=== PATIENT | female | born 1980 | race African-American/Black ===

== ENCOUNTER 2024-05-30 15:54 | Emergency (ER) | payer MEDICAID, OTHER ==
[~2024-05-30] VITALS: Ht 167.6 cm; Wt 80.0 kg
[~2024-05-30 15:54] MED LIST: NO MEDICATIONS REPORTED
[2024-05-30 16:10] VITALS: BP 137/92; PULSE 75; RESP 16; TEMP 98.3; O2SAT 98
[2024-05-30 18:15] LABS: BASOPHILS % 0.7 % (0.0-2.0); EOSINOPHILS % 0.8 % (0.0-5.0); HEMATOCRIT. 40.1 % (36.0-48.0); HEMOGLOBIN. 13.4 g/dL (12.0-16.0); LYMPHOCYTES % 34.5 % (20.0-50.0); MEAN CORPUSCULAR HGB CONC 33.3 g/dL (31.0-37.0); MEAN CORPUSCULAR VOLUME 93.1 fL (81.0-99.0); MEAN PLATELET VOLUME 10.3 fl (7.4-10.4); MONOCYTES % 7.6 % (2.0-8.0); NEUTROPHILS % 56.4 % (40.0-76.0); PLATELET 211 x1000/uL (130-400); RED BLOOD CELL COUNT 4.31 mill/uL (4.2-5.4); RED CELL DISTRIBUTION WIDTH 13.9 % (11.6-14.6); WHITE BLOOD COUNT 5.3 x1000/uL (4.5-11.0)
[2024-05-30 18:20] LABS: CHLORIDE 106 mEq/L (98-107); SODIUM 142 mEq/L (136-145)
[2024-05-30] MEDS: AZITHROMYCIN 500 MG TABLET PO ONE (18:20)
[2024-05-30] MEDS: CEFTRIAXONE SODIUM 500MG VIAL IM ONE (18:20)
[2024-05-30 18:21] LABS: CALCIUM 9.5 mg/dL (8.7-10.4); CARBON DIOXIDE 28 mEq/L (21-32)
[2024-05-30 18:26] LABS: CREATININE 0.6 mg/dL (0.6-1.0); GLUCOSE 135 mg/dL (70-105); UREA NITROGEN BLOOD 6 mg/dL (9-23)
[2024-05-30 18:28] LABS: HCG SCREEN NEGATIVE
[2024-05-30 18:36] LABS: CLARITY URINE CLOUDY (CLEAR); COLOR URINE YELLOW (YELLOW); GLUCOSE URINE NEGATIVE (NEGATIVE); KETONES URINE NEGATIVE (NEGATIVE); LEUKOCYTE ESTERASE URINE 1+ (NEGATIVE); NITRITE URINE NEGATIVE (NEGATIVE); OCCULT BLOOD URINE NEGATIVE (NEGATIVE); PROTEIN URINE TRACE (NEGATIVE); SPECIFIC GRAVITY URINE 1.015 (1.005-1.030)
[2024-05-30 19:00] LABS: BACTERIA URINE 3+; RBC URINE 0-2 /hpf (0-2); SQUAMOUS EPITHELIAL CELL URINE 2+ /lpf (RARE/1+)
[2024-05-30] MEDS ORDERED: MAGNESIUM OXIDE 400MG TABLET PO SCH (20:00)
[2024-05-30 20:37] LABS: POTASSIUM 2.7 mEq/L (3.5-5.1)
[2024-05-30] MEDS ORDERED: CEFTRIAXONE 1GM/50ML 50 ML IV ONE (20:45)
[2024-05-30] MEDS: SODIUM CHLORIDE 0.9% 1,000 ML IV ONE (20:45)
[2024-05-30] MEDS: POTASSIUM CHLORIDE 20MEQ/PACKET PO ONE (20:50)
[2024-05-30 21:07] LABS: TROPONIN I HIGH SENSITIVITY < 4 ng/L (3.0-34)
[2024-05-30] MEDS: KCL 20MEQ/100ML PREMIX 100 ML IV ONE (21:55)
[2024-06-02 05:14] LABS: CHLAMYDIA TRACHOMATIS NAA Negative (Negative); NEISSERIA GONORRHOEAE NAA Negative (Negative)
== END 2024-05-30 23:11 | disposition left against medical advice (07) ==
LOC: ER 15:54 → CANBEDREQ 05-31 00:29
DX: R53.1 Weakness (principal); E87.6 Hypokalemia; F41.9 Anxiety disorder, unspecified; I11.9 Hypertensive heart disease without heart failure; F12.90 Cannabis use, unspecified, uncomplicated; Z11.3 Encounter for screening for infections with a predominantly sexual mode of transmission; Z76.0 Encounter for issue of repeat prescription
CPT/HCPCS: 87491; 87591; 80048; 81003; 84703; 83735; 85025; 84484; 36415; 71045; 93005; 96361; 96365; 96372; 99285; J0696; J3480; J7030; Z7610